=== PATIENT | female | born 1975 | race Caucasian/White ===

== ENCOUNTER → 2017-03-14 | Outpatient (CLI) | payer BC ==
[~2017-03-14] MED LIST: LEVOTHYROXINE0.05 MG PO; LORTAB 5/500 501 TAB PO; MVI; PRENATAL1 TAB PO
== END ==
LOC: MC.RAD 10:58
DX: Z12.31 Encounter for screening mammogram for malignant neoplasm of breast (principal)

== ENCOUNTER → 2017-06-27 | Outpatient (CLI) | payer BC | LOC: COL.RAD 08:32 | DX: M85.612 Other cyst of bone, left shoulder (principal) ==

== ENCOUNTER → 2018-04-03 | Outpatient (CLI) | payer BC | LOC: MC.RAD 15:42 | DX: Z12.31 Encounter for screening mammogram for malignant neoplasm of breast (principal) ==

== ENCOUNTER 2019-04-01 09:02 | Emergency (ER) | payer SELFPAY ==
[~2019-04-01] VITALS: Ht 172.7 cm; Wt 59.1 kg
[2019-04-01 09:14] VITALS: BP 133/70; TEMP 98
[2019-04-01] MEDS ORDERED: SYNTHROID0.05 MG/TA PO (09:37)
[2019-04-01 10:58] VITALS: PULSE 74
== END 2019-04-01 10:58 | disposition home or self-care (01) ==
LOC: COL.ER 09:02
DX: S60.211A Contusion of right wrist, initial encounter (principal); E03.9 Hypothyroidism, unspecified; Z98.890 Other specified postprocedural states; V43.52XA Car driver injured in collision with other type car in traffic accident, initial encounter; Y92.410 Unspecified street and highway as the place of occurrence of the external cause

== ENCOUNTER → 2019-06-27 | Outpatient (CLI) | payer BC ==
[~2019-06-27] MED LIST changes: +SYNTHROID0.05 MG/TA PO
== END ==
LOC: MC.RAD 05-09 16:00
DX: Z12.31 Encounter for screening mammogram for malignant neoplasm of breast (principal)

== ENCOUNTER → 2020-07-15 | Outpatient (CLI) | payer BC | LOC: COL.RAD 09:58 | DX: M25.511 Pain in right shoulder (principal) | CPT/HCPCS: J3301; Q9967 ==

== ENCOUNTER → 2020-09-10 | Outpatient (CLI) | payer BC | LOC: MC.RAD 13:59 | DX: Z12.31 Encounter for screening mammogram for malignant neoplasm of breast (principal) ==

== ENCOUNTER → 2022-12-29 | Outpatient (CLI) | payer BC | LOC: COL.RAD 06:56 | DX: C20 Malignant neoplasm of rectum (principal); K76.9 Liver disease, unspecified | CPT/HCPCS: Q9967 ==

== ENCOUNTER → 2023-06-26 | Outpatient (CLI) | payer BC ==
[~2023-06-26] MED LIST changes: +Iohexol 300 - 100 ML VIAL IV ONE; +NS 100 ML IV SCH
== END ==
LOC: COL.RAD 08:23
DX: K76.89 Other specified diseases of liver (principal); C20 Malignant neoplasm of rectum; R91.1 Solitary pulmonary nodule; Z98.890 Other specified postprocedural states
CPT/HCPCS: Q9967

== ENCOUNTER → 2023-12-15 | Outpatient (CLI) | payer BC ==
[~2023-12-15] MED LIST changes: -Iohexol 300 - 100 ML VIAL IV ONE; -NS 100 ML IV SCH
== END ==
LOC: MC.RAD 11:28
DX: Z12.31 Encounter for screening mammogram for malignant neoplasm of breast (principal)